=== PATIENT | female | born 1950 | race Asian ===

== ENCOUNTER 2020-12-26 15:07 | Emergency (ER) | payer OTHER ==
[~2020-12-26] VITALS: Ht 165.1 cm; Wt 147.0 kg
[2020-12-26 15:26] VITALS: TEMP 98
[2020-12-26 16:32] VITALS: BP 137/88
== END 2020-12-26 16:32 | disposition home health service (06) ==
LOC: ED 15:07
DX: K02.9 Dental caries, unspecified (principal); K08.89 Other specified disorders of teeth and supporting structures
CPT/HCPCS: 96372; 99283; J1885

== ENCOUNTER 2021-01-21 11:34 | Emergency (ER) | payer OTHER ==
[~2021-01-21] VITALS: Ht 165.1 cm; Wt 147.0 kg
[2021-01-21 11:54] VITALS: TEMP 97.8
[2021-01-21 13:47] VITALS: BP 156/78
== END 2021-01-21 13:47 | disposition home or self-care (01) ==
LOC: ED 11:34
DX: M62.838 Other muscle spasm (principal); R25.2 Cramp and spasm
CPT/HCPCS: 99282; J1885